=== PATIENT | female | born 2000 | race Two or more races ===

== ENCOUNTER 2021-12-11 06:18 | Emergency (ER) | payer OTHER ==
[~2021-12-11] VITALS: Ht 170.2 cm; Wt 71.7 kg
--- NOTE | 2021-12-11 06:40 | NUR ---
BIBFRIEND. HEAVY VAGINAL BLEEDING AND CRAMPING X 2 HRS. POSITIVE . PER PATIENT SHE CHANGED PADS 3X SINCE 2230PM. PATIENT IS A1. LAST LMP 09/13/21. PATIENT CLAIMED THAT SHE TOOK ABORTIVE PILL LAST 11/09/21. PATIENT IS HAVING CRAMPING IN SUPRAPUBIC AREA RADIATING TO LUMBAR AREA. PLACED COMFORTABLY IN ROOM. VITALS CHECKED.
--- NOTE | 2021-12-11 06:58 | NUR ---
URINE SAMPLE COLLECTED
--- NOTE | 2021-12-11 07:17 | NUR ---
SEEN BY DR NEVAREZ AT BEDSIDE.
[2021-12-11 07:22] LABS: BILIRUBIN,URINE NEGATIVE (NEGATIVE); COLOR,URINE YELLOW (YELLOW); LEUKOCYTE ESTERASE ,URINE NEGATIVE (NEGATIVE); NITRITE, URINE NEGATIVE (NEGATIVE); PH,URINE 7.5 (5.0-8.0); PROTEIN,URINE NEGATIVE (NEGATIVE); UGLUCOSE NEGATIVE (NEGATIVE); UROBILINOGEN,URINE 0.2 EU/dL (0.2)
[2021-12-11 07:29] LABS: BASOPHILS % (AUTO) 0.1 % (0.0-2.0); EOSINOPHILS % (AUTO) 0.1 % (0.0-6.0); HEMATOCRIT 39 % (33-45); LYMPHOCYTES # (AUTO) 2.1 K/uL (0.8-4.8); MEAN CORPUSCULAR HGB CONC 34 g/dl (31.0-36.0); MEAN CORPUSCULAR VOLUME 89 fL (82-100); MONOCYTES # (AUTO) 0.9 K/uL (0.1-1.30); MONOCYTES % (AUTO) 5.4 % (2.0-12.0); NEUTROPHILS # (AUTO) 14.3 K/uL (1.8-8.9); NEUTROPHILS % (AUTO) 82.4 % (43.0-81.0); PLATELET COUNT (AUTO) 282 K/uL (150-450); RED BLOOD CELL COUNT(AUTO) 4.32 MIL/uL (4.0-5.2); WHITE BLOOD COUNT (AUTO) 17.3 K/uL (4.3-11.0)
[2021-12-11 07:42] LABS: BACTERIA,URINE 2+ /HPF (None Seen); RBC,URINE 81-100 /HPF (0-2); SQUAMOUS EPITHELIAL CELL,UR Few /HPF (None Seen)
[2021-12-11 08:49] LABS: ALBUMIN 4.3 g/dL (3.4-5.0); BILIRUBIN,DIRECT 0.1 mg/dL (0.0-0.2); BILIRUBIN,TOTAL 0.4 mg/dL (0.2-1.0); CALCIUM, SERUM 9.1 mg/dL (8.5-10.1); TOTAL PROTEIN, SERUM 7.5 g/dL (6.4-8.2)
[2021-12-11 08:53] LABS: POTASSIUM 3.3 mmol/L (3.5-5.1)
--- NOTE | 2021-12-11 12:44 | NUR ---
Patient discharged to home in stable condition. Written and verbal after care instructions given. Patient verbalizes understanding of instruction.
[2021-12-11 13:04] VITALS: BP 126/72
== END 2021-12-11 13:04 | disposition home or self-care (01) ==
LOC: ER 06:30
DX: O03.9 Complete or unspecified spontaneous abortion without complication (principal); Z3A.00 Weeks of gestation of pregnancy not specified
CPT/HCPCS: 36415; 76805-TC; 80048-TC; 80076-TC; 81001; 84702-TC; 84703-TC; 85025-TC; 85730-TC; 87086-TC